=== PATIENT | male | born 2000 | race Caucasian/White ===

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

== ENCOUNTER → 2023-07-28 | Outpatient (CLI) | payer OTHER ==
--- NOTE | 2023-07-28 12:24 | XR ---
EXAMINATION TYPE: XR cervical spine comp DATE OF EXAM: 07/28/2023 11:36 AM CLINICAL INDICATION:Male, 23 years old with history of M54.2 cervicalgia; COMPARISON: None TECHNIQUE: The cervical spine was imaged in frontal, lateral, odontoid and bilateral oblique. FINDINGS: The osseous structures show normal alignment without evidence of an acute fracture. No significant ve rtebral body osteophytes or facet joint arthropathy. The intervertebral disk spaces are preserved. Pe dicles are intact. Soft tissues are within normal limits. The odontoid appears intact. IMPRESSION: 1. No fracture or dislocation. 2. No significant degenerative disc disease changes of the cervical spine.
--- NOTE | 2023-07-28 12:59 | XR ---
EXAMINATION TYPE: XR lumbar spine 2 or 3V DATE OF EXAM: 07/28/2023 11:28 AM CLINICAL INDICATION:Male, 23 years old with history of M54.50 lumbar pain; [facility] COMPARISON: None TECHNIQUE: XR lumbar spine 2 or 3V - Frontal, lateral and coned down L5-S1 lateral views of the lumba r spine. FINDINGS: There are 5 lumbar-type vertebral bodies. Mineralization appears within normal limits. No osseous matthew tructive process seen. Vertebral body heights and disc spacing are preserved. There is normal AP alig nment of the lumbar vertebral bodies. Some straightening of the normal lordosis. No significant degen erative changes suggested throughout the spine. Soft tissues are unremarkable. IMPRESSION: No radiographic evidence of an acute abnormality of the lumbar spine.
== END | disposition home or self-care (01) ==
LOC: RADXRMAIN 10:38
PROVIDERS: ATTEND Chiropractor
DX: M54.2 Cervicalgia (principal); M54.50 Low back pain, unspecified
CPT/HCPCS: 72050; 72100

== ENCOUNTER 2024-01-31 14:57 | Emergency (ER) | payer OTHER ==
[2024-01-31 15:20] VITALS: RESP 16
--- NOTE | 2024-01-31 15:49 | ED ---
Chest Pain HPI - General Source: patient, family, RN notes reviewed Mode of arrival: wheelchair Limitations: no limitations <Emilia Lobo - Last Filed: 01/31/24 15:48> - General Source: patient, family, RN notes reviewed Limitations: no limitations <Nish Cano - Last Filed: 01/31/24 23:56> - General Chief Complaint: Chest Pain Stated Complaint: Chest Pain Time Seen by Provider: 01/31/24 15:10 - History of Present Illness Initial Comments: Quick [id number] male presents emergency department accompanied by his mother and father for chief complaint of chest pain, nausea, vomiting and weakness. Patient states that he was admitted to [facility] in the beginning of December where he had a neurology workup that was negative for MS (Emilia Lobo) 23-year-old male presents emergency department with family with concerns and chief complaint of weakness. 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 He shortly after then quit this job and symptoms continued in which he was hospitalized for 1 week at [facility] for acute kidney injury, hypomagnesemia, hypokalemia and a recently found out has hypothyroidism. Patient states he is lost 15 to 20 pounds he states he has difficulty keeping anything down. He states he now has tremoring with movements in which he was evaluated neurology and thought he may have MS but MRI was negative. Patient states he has night sweats, fatigue, chest, abdominal pain. (Nish Cano) - Related Data Home Medications Medication Instructions Recorded Confirmed Orphenadrine Citrate [Orphenadrine 100 mg PO DAILY PRN 01/31/24 01/31/24 Citrate ER] Allergies Allergy/AdvReac Type Severity Reaction Status Date / Time No Known Allergies Allergy Verified 01/31/24 19:41 Review of Systems ROS Other: All systems not noted in ROS Statement are negative. <Emilia Lobo - Last Filed: 01/31/24 15:48> ROS Other: All systems not noted in ROS Statement are negative. <Nish Cano - Last Filed: 01/31/24 23:56> ROS Statement: Those systems with pertinent positive or pertinent negative responses have been documented in the HPI. EKG Findings - EKG Comments: EKG Findings:: EKG performed at 16: 28 sinus tachycardia with a rate of 100 [place] 208 QRS 87 QT/QTc 333/390 - EKG Results: EKG: interpreted by ERMD <Nish Cano - Last Filed: 01/31/24 23:56> Past Medical History Past Medical History: No Reported History History of Any Multi-Drug Resistant Organisms: None Reported Past Surgical History: No Surgical Hx Reported Past Psychological History: No Psychological Hx Reported Smoking Status: Never smoker Past Alcohol Use History: None Reported Past Drug Use History: None Reported <StielerEmiila - Last Filed: 01/31/24 15:48> General Exam Limitations: no limitations <StielerEmilia - Last Filed: 01/31/24 15:48> General appearance: alert, in no apparent distress Head exam: Present: atraumatic, normocephalic, normal inspection Eye exam: Present: normal appearance, PERRL, EOMI. Absent: scleral icterus, conjunctival injection, periorbital swelling ENT exam: Present: normal exam, normal oropharynx, mucous membranes moist Neck exam: Present: normal inspection, full ROM. Absent: tenderness, meningismus, lymphadenopathy Respiratory exam: Present: normal lung sounds bilaterally. Absent: respiratory distress, wheezes, rales, rhonchi, stridor Cardiovascular Exam: Present: normal rhythm, tachycardia, normal heart sounds. Absent: systolic murmur, diastolic murmur, rubs, gallop, clicks GI/Abdominal exam: Present: soft, normal bowel sounds. Absent: distended, tenderness, guarding, rebound, rigid Neurological exam: Present: alert, oriented X3 Skin exam: Present: warm, dry, intact, normal color. Absent: rash <Nish Cano - Last Filed: 01/31/24 23:56> - General Exam Comments Initial Comments: Visual Physical Exam Vital signs reviewed General: Well-appearing, nontoxic, no acute distress. Head: Normocephalic, atraumatic Eyes: PERRLA, EOMI ENT: Airway patent Chest: Nonlabored breathing Skin: No visual rash, normal skin tone Neuro: Alert and oriented 3 Musculoskeletal: No gross abnormalities (Stieler,Emilia) Course Vital Signs 01/31/24 01/31/24 15:15 21:54 Temperature 98.9 F 97.9 F Pulse Rate 131 H 91 Respiratory 16 16 Rate Blood Pressure 145/87 146/96 O2 Sat by Pulse 100 99 Oximetry Chest Pain MDM <Emilia Lobo - Last Filed: 01/31/24 15:48> <Nish Cano - Last Filed: 01/31/24 23:56> - MDM I completed the quick note portion of this chart signed Emilia Lobo PA-C (Emilia Lobo) Was pt. sent in by a medical professional or institution (CHRISTINE White, BENDING ROLL OPERATOR, urgent ca re, hospital, or fci...) When possible be specific @ -No Did you speak to anyone other than the patient for history (EMS, parent, family, police, friend...)? What history was obtained from this source @ -No Did you review nursing and triage notes (agree or disagree)? Why? @ -I reviewed and agree with nursing and triage notes Were old charts reviewed (outside hosp., previous admission, EMS record, old EKG, old radiological studies, urgent care reports/EKG's, fci records)? Report findings @ -No old charts were reviewed Differential Diagnosis (chest pain, altered mental status, abdominal pain women, abdominal pain men, vaginal bleeding, weakness, fever, dyspnea, syncope, headache, dizziness, GI bleed, back pain, seizure, CVA, palpatations, mental health, musculoskeletal)? @ -Differential Weakness: Hypoglycemia, shock, sepsis, hyponatremia, anemia, infection, VT, ETOH, adverse medicine reaction, overdose, stroke, this is not meant to be an all-inclusive list. EKG interpreted by me (3pts min.). @ -As above X-rays interpreted by me (1pt min.). @ -Chest x-ray shows no acute cardiopulmonary process CT interpreted by me (1pt min.). @ -CT chest abdomen pelvis showing no evidence of infiltrate, PE, no intra or organ abnormality, no obstruction or acute findings noted U/S interpreted by me (1pt. min.). @ -None done What testing was considered but not performed or refused? (CT, X-rays, U/S, labs)? Why? @ -None What meds were considered but not given or refused? Why? @ -None Did you discuss the management of the patient with other professionals (professionals i.e. Dr., PA, BENDING ROLL OPERATOR, lab, RT, psych nurse, social media content manager, marketing and public relations manager, teacher, district fire management officer, case management assistant)? Give summary @ -No Was smoking cessation discussed for >3mins.? @ -No Was critical care preformed (if so, how long)? @ -No Were there social determinants of health that impacted care today? How? (Homelessness, low income, unemployed, alcoholism, drug addiction, transportation, low edu. Level, literacy, decrease access to med. care, half-way, rehab)? @ -No Was there de-escalation of care discussed even if they declined (Discuss DNR or withdrawal of care, Hospice)? DNR status @ -No What co-morbidities impacted this encounter? (DM, HTN, Smoking, COPD, CAD, Cancer, CVA, ARF, Chemo, Hep., AIDS, mental health diagnosis, sleep apnea, morbid obesity)? @ -None Was patient admitted / discharged? Hospital course, mention meds given and route, prescriptions, significant lab abnormalities, going to OR and other pertinent info. @ -Discharge patient presented for multiple complaints and worsening symptoms. Patient's laboratory studies do not reveal any significant findings. He did have elevated D-dimer which CT was negative. Patient was hydrated, given antiemetics he has multiple follow-ups and provided further follow-up with rheumatology, hematology oncology. Undiagnosed new problem with uncertain prognosis? @ -Yes Drug Therapy requiring intensive monitoring for toxicity (Heparin, Nitro, Insulin, Cardizem)? @ -No Were any procedures done? @ -No Diagnosis/symptom? @ -Weakness, nausea vomiting, tremors, fatigue, abdominal pain Acute, or Chronic, or Acute on Chronic? @ -Acute Uncomplicated (without systemic symptoms) or Complicated (systemic symptoms)? @ -Complicated Side effects of treatment? @ -No Exacerbation, Progression, or Severe Exacerbation? @ -No Poses a threat to life or bodily function? How? (Chest pain, USA, VT, pneumonia, PE, COPD, DKA, ARF, appy, cholecystitis, CVA, Diverticulitis, Homicidal, Suicidal, threat to staff... and all critical care pts) @ -No (Nish Cano) Disposition <Emilia Lobo - Last Filed: 01/31/24 15:48> Is patient prescribed a controlled substance at d/c from ED?: No Time of Disposition: :40 <Nish Cano - Last Filed: 01/31/24 23:56> Clinical Impression: Weight loss, Coarse tremors, Weakness, Nausea & vomiting Disposition: HOME SELF-CARE Condition: Stable Instructions (If sedation given, give patient instructions): Acute Nausea and Vomiting (ED) Additional Instructions: Please return to the Emergency Department if symptoms worsen or any other concerns. Referrals: Anu Gallo MD [Primary Care Provider] - 1-2 days Jessica Kam MD [STAFF PHYSICIAN] - 1-2 days Tracee Mojica MD [STAFF PHYSICIAN] - 1-2 days
[2024-01-31 16:47] LABS: Basophils % (A) 0 %; Eosinophils # (A) 0.1 k/uL (0-0.7); Eosinophils % (A) 0 %; HCT 43.3 % (39.0-53.0); Lymphocytes # (A) 1.6 k/uL (1.0-4.8); Lymphocytes % (A) 13 %; MCH 31.7 pg (25.0-35.0); MCHC 34.6 g/dL (31.0-37.0); MCV 91.8 fL (80.0-100.0); Monocytes # (A) 0.8 k/uL (0-1.0); Monocytes % (A) 7 %; Neutrophils # (A) 9.6 k/uL (1.3-7.7); Neutrophils % (A) 79 %; Platelet Count 268 k/uL (150-450); RBC 4.72 m/uL (4.30-5.90); RDW 12.6 % (11.5-15.5); WBC 12.2 k/uL (3.8-10.6)
[2024-01-31 16:54] LABS: INR 1.1 (<1.2); Partial Thromboplastin Time 24.6 sec (22.0-30.0); Prothrombin Time 11.9 sec (10.0-12.5)
[2024-01-31 17:18] LABS: ALT 21 U/L (4-49); African American GFR (CKD) >90 (>60 ml/min/1.73 sqM); Albumin 5.1 g/dL (3.5-5.0); Anion Gap 15 mmol/L; Blood Urea Nitrogen 13 mg/dL (9-20); Calcium 9.9 mg/dL (8.4-10.2); Carbon Dioxide 19 mmol/L (22-30); Chloride 103 mmol/L (98-107); Glucose 101 mg/dL (74-99); Non-African American GFR(CKD) >90 (>60 ml/min/1.73 sqM); Sodium 137 mmol/L (137-145); Total Bilirubin 1.7 mg/dL (0.2-1.3); Total Protein 7.5 g/dL (6.3-8.2)
[2024-01-31 17:21] LABS: AST 37 U/L (17-59); Alkaline Phosphatase 45 U/L (38-126); Magnesium 1.8 mg/dL (1.6-2.3); Potassium 3.8 mmol/L (3.5-5.1)
--- NOTE | 2024-01-31 17:26 | XR ---
EXAMINATION TYPE: XR chest 2V DATE OF EXAM: 01/31/2024 COMPARISON: 111 20,004 INDICATION: Chest pain nausea vomiting diarrhea TECHNIQUE: Frontal and lateral views of the chest are obtained. FINDINGS: The heart size is normal. The pulmonary vasculature is normal. The lungs are clear. IMPRESSION: 1. No acute pulmonary process. [facility], , 01/31/2024 5:23 PM
[2024-01-31 18:35] LABS: C Reactive Protein <0.5 mg/dL (<1.0); LDH 292 U/L (120-246); Phosphorus 1.9 mg/dL (2.5-4.5)
[2024-01-31] MEDS: METOCLOPRAMIDE 5 MG/ML 2 ML VIAL IVP STA (20:48)
[2024-01-31] MEDS: SODIUM CHLORIDE 0.9% 1,000 ML IV ONE (20:49)
--- NOTE | 2024-01-31 20:57 | CT ---
CTA CHEST EXAMINATION TYPE: CT chest angio for PE DATE OF EXAM: 01/31/2024 INDICATION: chest pain, weight loss CT DLP: 303.4 mGycm, Automated exposure control for dose reduction was used. CONTRAST: Patient injected with 100 mL of Isovue 370. COMPARISON: None TECHNIQUE: CT of the chest is performed on a spiral scan at 2 mm thick sections. Study is performed with intravenous contrast timed for evaluation for pulmonary embolism. This will limit additional po rtions of the evaluation. 3-D MIP images reconstructed by the technologist are reviewed on the compu ter in the coronal and sagittal planes. FINDINGS: No persistent filling defects are evident to suggest an acute pulmonary embolism. No mediastinal or hilar adenopathy enlarged by CT criteria is evident. The ascending aorta diameter at the level of the main pulmonary artery is 2.7 cm. The main pulmonary artery diameter at the bifurcation is 2.9 cm. Lung windows are clear. Limited CT sections were through the upper abdomen. Upper abdomen appears unremarkable. IMPRESSION: 1. Acute pulmonary embolism. 2. No acute pulmonary process. [facility], , 01/31/2024 8:55 PM
--- NOTE | 2024-01-31 21:13 | CT ---
EXAMINATION TYPE: CT abdomen pelvis w con DATE OF EXAM: 01/31/2024 COMPARISON: None INDICATION: Abdominal pain, weight loss DLP: 565.2 mGycm, Automated exposure control for dose reduction was used. CONTRAST: 100 mL of Isovue 370. Study performed without Oral Contrast TECHNIQUE: Axial images were obtained from above the diaphragm to the pubic rami in the axial plane a t 5 mm thick sections. Reconstructed images are reviewed on the computer in the coronal plane. FINDINGS: Limited CT sections are obtained the lung bases. The lung bases are clear. CT ABDOMEN: Liver: Normal Spleen: Normal Pancreas: Normal Adrenal glands: The adrenal glands are normal. Gallbladder: Normal Kidneys: No masses are evident. No hydronephrosis is present. No cysts are present. Delayed images were obtained through the kidneys, which remain unremarkable. Aorta: Normal Inferior vena cava: Normal. CT PELVIS: Loops of bowel within the abdomen and pelvis are normal. This study is limited without oral contr ast limiting evaluation. Appendix: Not identified. No dilated tubular structure or inflammatory changes evident. Urinary bladder: Unremarkable Genitourinary structures: Prostate appears somewhat prominent for the patient's age Osseous structures: No suspicious lytic or sclerotic lesions. IMPRESSION: 1. No suspicious acute changes. Follow-up is clinically indicated. [facility], , 01/31/2024 9:10 PM
[2024-01-31 21:56] VITALS: BP 146/96; PULSE 91; TEMP 97.9
== END 2024-01-31 21:56 | disposition home or self-care (01) ==
LOC: EC 14:57
DX: R07.9 Chest pain, unspecified
CPT/HCPCS: 36415; 71046; 71275; 74177; 80053; 83615; 83735; 84100; 84443; 84484; 85025; 85379; 85610; 85652; 85730; 86140; 87636; 93005; 96361; 96374; 99285

== ENCOUNTER → 2024-02-24 | Outpatient (CLI) | payer OTHER ==
[2024-02-24 15:42] LABS: % Iron Saturation 37.79 (15.00-50.00); ALT 25 U/L (10-49); AST 21 U/L (14-35); Albumin 4.9 g/dL (3.8-4.9); Albumin/Globulin Ratio 2.45 Ratio (1.60-3.17); Alkaline Phosphatase 55 U/L (41-126); Blood Urea Nitrogen 10.2 mg/dL (9.0-27.0); Calcium 9.9 mg/dL (8.7-10.3); Chloride 103 mmol/L (96-109); Creatine Kinase 58 U/L (35-257); Glucose 108 mg/dL (70-110); Iron 116 UG/DL (65-175); Potassium 4.3 mmol/L (3.5-5.5); Rheumatoid Factor, Qnt <15 IU/mL (0-15); Sodium 141 mmol/L (135-145); Total Bilirubin 0.8 mg/dL (0.3-1.2); Total Iron Binding Capacity 307 UG/DL (228-460); Total Protein 6.9 g/dL (6.2-8.2)
[2024-02-24 15:52] LABS: Hepatitis C IgG Antibody Nonreactive (Nonreactive)
[2024-02-24 17:43] LABS: Gliadin AB IgA, Deaminated Negative (Negative); Gliadin AB IgA, Unit 1.2 U/mL; Gliadin AB IgG, Deaminated Negative (Negative); Gliadin AB IgG, Unit 0.5 U/mL
[2024-02-25 04:55] LABS: HIV 2 AB Non-Reactive (Non-Reactive); HIV AB P24 Non-Reactive (Non-Reactive); HIV P24 AG Non-Reactive (Non-Reactive)
== END | disposition home or self-care (01) ==
LOC: LABWHC1 10:20
PROVIDERS: ATTEND Internal Medicine Hematology & Oncology
CPT/HCPCS: 36415; 80053; 82550; 82728; 82784; 83516; 83540; 83550; 86141; 86431; 86803; 87390

== ENCOUNTER 2024-08-23 07:16 | Day surgery (SDC) | payer OTHER ==
[2024-08-21 10:44] VITALS: BMI 24.3
[2024-08-23] MEDS: SODIUM CHLORIDE 0.9% 1,000 ML IV SCH (07:40)
[2024-08-23 07:48] VITALS: BP 135/70; PULSE 75; RESP 16; TEMP 97.1
[2024-08-23] MEDS: SODIUM CHLORIDE 0.9% 500 ML 500 ML IV ONE ×2 (08:45→10:26)
--- NOTE | 2024-08-23 17:08 | P.EPPROC ---
- EP Procedure Note Electrophysiology Procedure Note: Diagnosis syncopal spells Twelve-lead EKG shows sinus rhythm normal CA narrow QRS normal ST segments normal QT interval Tilt table test per protocol Baseline blood pressure 133/67 mmHg, baseline heart rate 62 beats a minute Patient was tilted upright at an angle of 70 degrees per protocol There was no significant change in blood pressure The lowest blood pressure recorded was 119/78 mmHg The maximum heart rate recorded was 97 beats a minute The patient complained of cold hands and feet, full body weakness feeling hot blurred vision nausea sweatiness He stated as he was going to pass out and he was laid supine within 20 minutes of upright tilt Impression Normal twelve-lead EKG Symptoms are out of proportion to the physiologic response to upright tilting This is a normal physiologic response to upright tilting without any drop in blood pressure or any significant increase in heart rate The patient's symptoms included feeling cold in the hands, full body weakness blackening of vision, nausea sweatiness flushed and feeling that he was going to pass out without any drop in blood pressure or significant change in heart rate No evidence for neurocardiogenic syncope No clear-cut evidence for POTS
== END 2024-08-23 10:26 | disposition home or self-care (01) ==
LOC: CATHEP 07:16
PROVIDERS: ATTEND Internal Medicine Clinical Cardiac Electrophysiology
DX: R55 Syncope and collapse (principal); Z79.899 Other long term (current) drug therapy; Z82.49 Family history of ischemic heart disease and other diseases of the circulatory system
CPT/HCPCS: 93660